=== PATIENT | male | born 1985 | race Caucasian/White ===

== ENCOUNTER 2019-05-17 07:25 | Emergency (ER) | payer OTHER, SELFPAY ==
[2019-05-17 07:25] VITALS: BP 110/80; PULSE 70; RESP 16; TEMP 36.8; O2SAT 95
--- NOTE | 2019-05-17 07:53 | ED.GENADULT ---
HPI - General Adult General Chief complaint: Unspecified Stated complaint: sore throat Time Seen by Provider: 05/17/19 07:43 History of Present Illness HPI narrative: Kade Is a 33-year-old male past medical history of tobacco abuse that presents to the emergency department with a sore throat. He reports that he was chopping wood when he had the sore throat come on. He denies any fevers, chills, nausea, vomiting, headache, cough, rhinorrhea in shortness of breath as well as chest pain. Related Data Allergies Allergy/AdvReac Type Severity Reaction Status Date / Time clindamycin Allergy Intermediate Agitated Verified 05/17/19 07:52 Review of Systems Constitutional: Constitutional: Reports no additional constitutional complaints Eyes: Eyes: Reports no additional eye complaints ENT: Reports as per HPI Cardiovascular: Cardiovascular: Reports no additional cardiovascular complaints Respiratory: Respiratory: Reports no additional respiratory complaints Gastrointestinal: Gastrointestinal: Reports no additional gastrointestinal complaints Genitourinary: Genitourinary: Reports no additional male genitourinary complaints Musculoskeletal: Musculoskeletal: Reports no additional musculoskeletal complaints Integumentary/Breasts: Skin/Breast: Reports system reviewed and no additional complaints, except as docu Neurologic: Reports system reviewed and no additional complaints, except as documented Psychiatric: Psychiatric: Reports no additional psychiatric complaints Endocrine: Endocrine: Reports no additional endocrine complaints Hematologic/Lymphatic: Hematologic/Lymphatic: Reports no additional hematologic/lymphatic complaints Allergic/Immunologic: Allergic/Immunologic: Reports no additional allergic/immunologic complaints [facility] Social History Social History Gender identity (if verbalized by the patient): Male Exam Const: General: no acute distress and alert Orientation/consciousness: patient oriented x3 Limitations: No altered mental status HENMT: Other: slightly swollen uvula, erythematous oropharynx with purulent exudate, poor dentition Eyes: Conjunctivae: conjunctivae normal Pupils: Equal, round and reactive pupils present Neck: Neck: normal visual inspection Resp: Effort & Inspection: normal respiratory effort and not labored Auscultation: clear to auscultation bilaterally Cardio: Rate: regular rate Heart sounds: no murmurs GI: GI Palp: Yes Soft to palpation and No Tenderness to palpation present (GI) Skin: General skin exam: normal color Rashes: no rashes Neuro: General: patient oriented x3 and moves all extremities Extrem: General: normal to inspection Psych: Mental Status: mental status grossly normal Course Course Emergency Course: Kade was seen and evaluated. Ordered strep and flu swabs. Vital Signs Vital signs: Vital Signs Temperature 36.8 C 05/17/19 07:25 Pulse Rate 70 05/17/19 07:25 Respiratory Rate 16 05/17/19 07:25 Blood Pressure 110/80 05/17/19 07:25 Pulse Oximetry 95 05/17/19 07:25 Temperature 36.8 C 05/17/19 07:25 Pulse Rate 70 05/17/19 07:25 Respiratory Rate 16 05/17/19 07:25 Blood Pressure 110/80 05/17/19 07:25 Pulse Oximetry 95 05/17/19 07:25 Medical Decision Making MDM Narrative Medical decision making narrative: while the rapid strep test was negative he still that have signs that were very concerning strep throat so a script for penicillin was sent Vital Signs Vital Signs: Vital Signs Temperature 36.8 C 05/17/19 07:25 Pulse Rate 70 05/17/19 07:25 Respiratory Rate 16 05/17/19 07:25 Blood Pressure 110/80 05/17/19 07:25 Pulse Oximetry 95 05/17/19 07:25 Temperature 36.8 C 05/17/19 07:25 Pulse Rate 70 05/17/19 07:25 Respiratory Rate 16 05/17/19 07:25 Blood Pressure 110/80 05/17/19 07:25 Pulse Oximetry 95 05/17/19 07:25 [facility]
[2019-05-17] MEDS: KETOROLAC (*BKC) 60 MG/2 ML VIAL 30 MG IM (07:59)
[2019-05-17 08:07] LABS: Influenza Control Valid (Valid)
--- NOTE | 2019-05-17 08:10 | PC.NURSE ---
patient sleeping, no signs of pain castellanos-soto scale.
[2019-05-17 08:21] VITALS: BP 120/70; PULSE 68; RESP 16; TEMP 37
== END 2019-05-17 08:25 | disposition home or self-care (01) ==
PROVIDERS: Emergency Provider Family Medicine
DX: J02.9 Acute pharyngitis, unspecified (principal)
CPT/HCPCS: 87081; 87804; 87880; 96372; 99283; J1885

== ENCOUNTER 2023-05-18 01:29 | Emergency (ER) | payer SELFPAY ==
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
[2023-05-18 01:34] VITALS: BP 88/59; PULSE 57; RESP 18; TEMP 36.9; O2SAT 100
[2023-05-18 01:40] LABS: Glucose Point of Care 111 mg/dl (65-105)
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
[2023-05-18] MEDS: TETANUS,DIPHTHERIA,AC PERTUSSIS ADULT 0.5 ML (ADACEL) IM (01:52)
[2023-05-18] MEDS: SODIUM CHLORIDE 0.9% IV 1,000 ML 999 ML IV CONT (01:52)
[2023-05-18] MEDS: KETOROLAC 30 MG/ML VIAL (*BKC) IV PUSH (01:52)
[2023-05-18] MEDS: LIDOCAINE HCL 1% LOCAL INJ 10 ML VIAL INFILTRATE (01:52)
[2023-05-18 02:39] VITALS: BP 110/54; PULSE 70; RESP 18; TEMP 36.9; O2SAT 100
== END 2023-05-18 02:53 | disposition home or self-care (01) ==
PROVIDERS: Emergency Provider Emergency Medicine
DX: S69.81XA Other specified injuries of right wrist, hand and finger(s), initial encounter (principal); W26.8XXA Contact with other sharp object(s), not elsewhere classified, initial encounter; W45.8XXA Other foreign body or object entering through skin, initial encounter; Z23 Encounter for immunization
CPT/HCPCS: 73130; 82948; 90471; 90715; 96365; 96375; 99284; J0696; J1885; J7030

== ENCOUNTER 2024-10-31 19:22 | Emergency (ER) | payer SELFPAY ==
--- NOTE | ~2024-10-31 | XR_ITS ---
XR elbow RT min 3V 10/31/2024 20:07 INDICATION: Right elbow pain PROCEDURE: 4 views right elbow COMPARISON: No prior studies for comparison. FINDINGS: Fracture, dislocation or subluxation is not identified. The soft tissues appear within normal limits. No foreign bodies are identified. IMPRESSION: 1: NO ACUTE BONE OR JOINT ABNORMALITY IDENTIFIED. Reviewed, dictated and finalized at location O.
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
[2024-10-31 19:22] VITALS: BP 100/56; PULSE 62; RESP 20; TEMP 37.2; O2SAT 100
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
[2024-10-31] MEDS: HYDROcodone/acetaminophen (*CRX) 5-325 MG TABLET 1 TAB PO (20:05)
[2024-10-31] MEDS: KETOROLAC (*BKC) 60 MG/2 ML VIAL IM (20:06)
[2024-10-31] MEDS: ONDANSETRON HCL ODT 4 MG TABLET PO (20:14)
--- OUTSIDE RECORDS SUMMARY | 2024-10-31 20:28 | XMS_ITS | Clinical Summary ---
Author Organization [facility] Address [address] [place] [id number] Care Team Providers Care Guide Setter Name Role Phone Unavailable Primary Care Provider Unavailabl e Social History Tobacco Use Types Packs/Day Years Used Date Smoking Tobacco: Never Assessed Sex and Gender Information Value Date Recorded Sex Assigned at Not on file Legal Sex Male 8:03 AM CDT Gender Identity Not on file Sexual Orientation Not on file Last Filed Vital Signs Vital Sign Reading Time Taken Comments Blood Pressure 120/60 07/07/2013 10:10 AM CDT Pulse 80 07/07/2013 10:10 AM CDT Temperature - - Respiratory Rate - - Oxygen Saturation - - Inhaled Oxygen Concentration - - Weight 64 kg (141 lb) 07/07/2013 10:10 AM CDT Height - - Body Mass Index - - Plan of Treatment Health Maintenance Due Date Last Done Comments Annual Physical 07/29/1990 Hepatitis C 07/29/2005 DTaP, Tdap and Td Vaccines ( 1 - Tdap) 07/29/2006 Hepatitis B Vaccines (1 of 3 - 19+ 3-dose series) 07/29/2006 HPV Vaccines (1 - 3-dose SCD M series) 07/29/2014 COVID-19 Vaccine (2023-2 5 season) 2024 Meningococcal B Vaccine Aged Out No l onger eligible based on patient's age to complete this topic Meningococcal Vaccine Aged Out No florian anamika eligible based on patient's age to complete this topic Pneumococcal Vaccine: Pediat rics (0 to 5 Years) and At-Risk Patients (6 to 49 Years) Aged Out No longer eligible b ased on patient's age to complete this topic RSV Immunizations Under 20 Months Aged Out No longer eligible based on patient's age to complete this topic
[2024-10-31 20:45] VITALS: BP 121/81; PULSE 83; RESP 18; TEMP 37.2; O2SAT 99
== END 2024-10-31 20:44 | disposition home or self-care (01) ==
PROVIDERS: Emergency Provider Emergency Medicine; Referring Provider Family Medicine
DX: M70.31 Other bursitis of elbow, right elbow (principal); M54.42 Lumbago with sciatica, left side
CPT/HCPCS: 72100; 73080; 96372; 99284; A9270; J1885; J7512

== ENCOUNTER 2025-01-23 02:36 | Emergency (ER) | payer SELFPAY ==
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
--- OUTSIDE RECORDS SUMMARY | 2025-01-23 02:38 | XMS_ITS | Clinical Summary ---
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
[2025-01-23 02:43] VITALS: BP 125/94; PULSE 128; RESP 20; TEMP 36.6; O2SAT 100
--- NOTE | 2025-01-23 02:48 | ECG_ITS ---
Test Date: 2025-01-23 02:53:21 Measurements Intervals [place] Rate: 98 P: 39 VT: 148 QRS: -16 QRSD: 89 T: 51 QT: 327 QTc: 419 Interpretive Statements SINUS RHYTHM BORDERLINE LEFTWARD AXIS OTHERWISE NORMAL ECG No previous ECG available for comparison Electronically Signed On 01-23-2025 13:31:01 GRAPHICS EDIT TECHNICIAN by Americo Martinez M.D.
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
[2025-01-23] MEDS: diazePAM INJ (*CRX) 10 MG/2 ML SYRINGE 5 MG IM (03:02)
[2025-01-23 03:20] LABS: Hematocrit 47.8 % (40.0-54.0); Hemoglobin 15.8 g/dL (14.0-18.0); Immature Granulocyte Percent A 0.5 % (0.0-0.0); Lymphocytes Absolute Auto 2.33 K/mm3 (1.10-4.50); Mean Corpuscular HGB Conc 33.1 g/dL (32-36); Mean Corpuscular Hemoglobin 29.9 pg (27.0-31.0); Mean Corpuscular Volume 90.5 fL (78.0-102.0); Nucleated Red Blood Cells Absolute Auto 0.00 K/mm3 (0.00-0.00); Nucleated Red Blood Cells Perc 0.0 % (0-0.0); Platelet Count Result 430 K/mm3 (150-420); Red Blood Count 5.28 M/mm3 (4.70-6.10); White Blood Count 15.8 K/mm3 (4.8-10.8)
[2025-01-23 03:32] LABS: Anion Gap 10 mmol/L (4-12); Blood Urea Nitrogen 22 mg/dL (9-20); Calcium 8.9 mg/dL (8.4-10.2); Carbon Dioxide 29 mmol/L (22-30); Chloride 104 mmol/L (98-107); Estimated Glomerular Filt Rate > 60; Glucose 107 mg/dL (65-110); Lipase 179 U/L (23-300); Osmolality Calculated 299 mOsm/kg (285-295); Potassium 3.6 mmol/L (3.4-5.0); Sodium 143 mmol/L (137-145)
[2025-01-23 03:36] LABS: INR 0.9; Prothrombin Time 10.5 Seconds (9.50-12.1)
[2025-01-23 03:44] LABS: NT Pro B Type Natriuretic Pept < 20 pg/mL (19.9-100); Troponin I < 0.012 ng/mL (0.000-0.034)
[2025-01-23 04:33] VITALS: BP 117/64; PULSE 72; RESP 18; TEMP 36.6; O2SAT 100
== END 2025-01-23 04:33 ==
PROVIDERS: Emergency Provider Family Medicine; Referring Provider Family Medicine
DX: F15.10 Other stimulant abuse, uncomplicated (principal)
CPT/HCPCS: 36415; 71045; 80048; 82077; 83690; 83880; 84484; 85025; 85610; 93005; 96372; 99284; J3360